=== PATIENT | male | born 1990 | race American Indian/Alaskan Native ===

== ENCOUNTER 2017-08-19 22:22 | Emergency (ER) | payer OTHER ==
[2017-08-19 22:56] VITALS: BP 108/66
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
--- NOTE | 2017-08-20 00:51 | Cat Scan Report ---
FINAL REPORT EXAM: CT HEAD/BRAIN WO CON HISTORY: Trauma COMPARISON: None available. TECHNIQUE: Axial images obtained skull base through vertex. FINDINGS: No acute intracranial hemorrhage, midline shift or pathologic extra axial fluid collection. Ventricles and cisterns are normal in size and configuration for the patient's age. Story-white differentiation preserved. Calvarium grossly intact. Mild to moderate mucosal thickening the paranasal sinuses. Mastoid air cells are clear. IMPRESSION: No grossly acute intracranial abnormality.
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
[2017-08-20] MEDS ORDERED: NORCO 5/325 PO ONE (01:59)
--- NOTE | 2017-08-20 02:20 | Cat Scan Report ---
FINAL REPORT EXAM: CT CERVICAL SPINE WO CON HISTORY: Trauma pain. COMPARISON: None available. TECHNIQUE: Axial images obtained through the cervical spine. Additional sagittal and coronal reformatted images were obtained. FINDINGS: Normal lordotic curvature of the cervical spine. Incomplete fusion of posterior arch of C1, anatomic variant. Cervical vertebral body heights are preserved. No acute fracture or traumatic subluxation. Odontoid process, articular pillars and occipital condyles are intact. No significant bony encroachment upon the canal or foramen. Mild scarring at the left lung apex. IMPRESSION: No acute fracture or subluxation of the cervical spine.
== END 2017-08-20 02:48 | disposition home or self-care (01) ==
LOC: ED 22:22
DX: M54.2 Cervicalgia (principal); M54.5 Low back pain; R51 Headache; F17.200 Nicotine dependence, unspecified, uncomplicated; V89.2XXA Person injured in unspecified motor-vehicle accident, traffic, initial encounter; Y93.89 Activity, other specified; Y99.8 Other external cause status; Y92.410 Unspecified street and highway as the place of occurrence of the external cause
CPT/HCPCS: 70450; 72100; 72125